=== PATIENT | female | born 1975 | race Two or more races ===

== ENCOUNTER 2025-07-14 10:12 | Inpatient (IN) | payer OTHER ==
[~2025-07-14] VITALS: Ht 167.6 cm; Wt 85.5 kg
--- NOTE | 2025-07-14 10:39 | ED.PDOC ---
HPI Comments 59-year-old female presents here with chest discomfort. She states she woke up around 6:00 a.m. with this chest discomfort. Reports pressure-like pain worse with deep breaths. States it radiates to her jaw. No history of similar type of pain in the past. She states the pain is currently 9/10. Worse when she exerts herself. Or becomes agitated. Chief Complaint: Chest Pain Time Seen by MD: 11:00 Reviewed Notes: Nurses Notes, Medications, Allergies Allergies: Coded Allergies: NO KNOWN ALLERGIES (Unverified , 07/14/25) Information Source: Patient Mode of Arrival: Ambulatory Severity: Moderate Timing: Hours Duration: Since onset, Hours Prehospital treatment: None Location: Chest (R), Chest (L) Radiation: Neck Quality: Pressure, Heavy Onset: At Rest Cardiac Risk Factors: None PE Risk Factors: None History of: None Associated Signs and Symptoms: None Past Medical History PAST MEDICAL HISTORY: Arthritis, HTN Past Medical History (Other): hypothyroid Surgical History: , Hysterectomy Surgical History (Other): gastric sleeve INSIDE SALES DIRECTOR History: No Pertinent INSIDE SALES DIRECTOR History Family History Family History: Reviewed,noncontributory to illness, Unknown Social History Smoker: Non-Smoker Alcohol: Denies ETOH Use Drugs: Denies Drug Use Lives In: Home Constitutional: denies: chills, diaphoresis, fatigue, fever, malaise, sweats, weakness, others EENTM: denies: blurred vision, double vision, ear bleeding, ear discharge, ear drainage, ear pain, ear ringing, eye pain, eye redness, hearing loss, mouth pain, mouth swelling, nasal discharge, nose bleeding, nose congestion, nose pain, photophobia, tearing, throat pain, throat swelling, voice changes, others Respiratory: reports: shortness of breath; denies: cough, hemoptysis, orthopnea, SOB at rest, SOB with excertion, stridor, wheezing, others Cardiovascular: reports: chest pain, others (RADIATING UP THE NECK); denies: dizzy spells, diaphoresis, Dyspnea on exertion, edema, irregular heart beat, left arm pain, lightheadedness, palpitations, PND, syncope Gastrointestinal: denies: abdomen distended, abdominal pain, blood streaked bowels, constipated, diarrhea, dysphagia, difficulty swallowing, hematemesis, melena, nausea, poor appetite, poor fluid intake, rectal bleeding, rectal pain, vomiting, others Genitourinary: denies: abnormal vagina bleeding, burning, dyspareunia, dysuria, flank pain, frequency, hematuria, incontinence, pain, , vagina discha rge, urgency, others Neurological: denies: dizziness, fainting, headache, left sided numbness, left sided weakness, numbness, paresthesia, pre-existing deficit, right sided numbness, right sided weakness, seizure, speech problems, tingling, tremors, weakness, others Musculoskeletal: denies: back pain, gout, joint pain, joint swelling, muscle pain, muscle stiffness, neck pain, others Integumetry: denies: bruises, change in color, change in hair/nails, dryness, laceration, lesions, lumps, rash, wounds, others Allergic/Immunocompromised: denies: Difficulty Healing, Frequent Infections, Hives, Itching, others Hematologic/Lymphatic: denies: anemia, blood clots, easy bleeding, easy bruising, swollen glands, others Endocrine: denies: excessive hunger, excessive sweating, excessive thirst, excessive urination, flushing, intolerance to cold, intolerance to heat, unexplained weight gain, unexplained weight loss, others Psychiatric: denies: anxiety, bipolar disorder, depression, hopeless, panic disorder, schizophrenia, sleepless, suicidal, others All Other Systems: Reviewed and Negative Physical Exam General Appearance: Moderate Distress, Other (Tearful clutching her chest) HEENT: Normal ENT Inspection, Pharynx Normal, TMs Normal Neck: Full Range of Motion, Non-Tender, Normal, Normal Inspection Respiratory: Chest Non-Tender, Lungs Clear, No Accessory Muscle Use, No Respiratory Distress, Normal Breath Sounds Cardiovascular: No Edema, No JVD, No Murmur, No Gallop, Normal Peripheral Pulses, Regular Rate/Rhythm Breast Exam: Deferred Gastrointestinal: No Organomegaly, Non Tender, No Pulsatile Mass, Normal Bowel Sounds, Soft Genitalia: Deferred Pelvic: Deferred Rectal: Deferred Extremities: No calf tenderness, Normal capillary refill, Normal inspection, Normal range of motion, Non-tender, No pedal edema Musculoskeletal : Apperance: Normal Neurologic: Alert, No Motor Deficits, Normal Affect, Normal Mood, No Sensory Deficits Cerebellar Function: Normal Reflexes: Normal Skin: Dry, Normal Color, Warm Lymphatic: No Adenopathy EKG EKG #1: Pulse Rate (adult): 91 [place]: Normal Cardiac Rhythm: NSR Block: None Hypertrophy: None ST: Normal Comments Rate of [address] sinus rhythm no significant ST changes artifact on EKG EKG #2: Comments EKG 2. 11:16 a.m.. Rate of 77 sinus rhythm inverted T-waves in 2 3 and lateral leads V4 V5 V6. Was a procedure done? Was a procedure done?: No CP Differential Dx Differential Diagnosis: Angina, Anxiety / Panic Attack, Pulmonary Embolus, N/A Differential Diagnosis: N/A Differential Diagnosis: Angina, Aortic dissection, Cholelithiasis, Esophageal reflux/spasm, Gastritis, Myocardial Infarction, Pericarditis, Pneumonia, Pneumothorax, Other (CHEST PAIN) X-Ray, Labs, Meds, VS Vital Signs Date Time Temp Pulse Resp B/P (MAP) Pulse Ox O2 Delivery O2 Flow Rate FiO2 07/14/25 11:16 77 07/14/25 11:05 91 07/14/25 10:29 91 07/14/25 10:20 98.2 103 18 173/98 98 98.2 Lab Test 07/14/25 10:57 Range/Units White Blood Count 7.3 4.4-10.8 10^3/uL Red Blood Count 4.67 4.0-5.20 10^6/uL Hemoglobin 14.2 12.2-16.2 g/dL Hematocrit 41.5 36.0-46.0 % Mean Corpuscular Volume 89.0 80.0-100.0 fL Mean Corpuscular Hemoglobin 30.3 28.0-32.0 pg Mean Corpuscular Hemoglobin Concent 34.1 32.0-36.0 g/dL Red Cell Distribution Width 13.3 11.8-14.3 % Platelet Count 291 140-450 10^3/uL Mean Platelet Volume 8.2 6.9-10.8 fL Neutrophils (%) (Auto) 65.2 37.0-80.0 % Lymphocytes (%) (Auto) 23.4 10.0-50.0 % Monocytes (%) (Auto) 7.0 0.0-12.0 % Eosinophils (%) (Auto) 3.9 0.0-7.0 % Basophils (%) (Auto) 0.5 0.0-2.0 % Neutrophils # (Auto) 4.7 1.6-8.6 10 ^3/uL Lymphocytes # (Auto) 1.7 0.4-5.4 10 ^3/uL Monocytes # (Auto) 0.5 0-1.3 10 ^3/uL Eosinophils # (Auto) 0.3 0-0.8 10 ^3/uL Basophils # (Auto) 0 0-0.2 10 ^3/uL Nucleated Red Blood Cells 0.0 % Sodium Level 145 136-145 mmol/L Potassium Level 4.2 3.5-5.1 mmol/L Chloride Level 107 98-107 mmol/L Carbon Dioxide Level 24 20-31 mmol/L Anion Gap 14 5-15 Blood Urea Nitrogen 10 9-23 mg/dL Creatinine 0.81 0.550-1.02 mg/dL Glomerular Filtration Rate Calc 88 >90 mL/min BUN/Creatinine Ratio 12.3 10.0-20.0 Serum Glucose 96 74-106 mg/dL Hemoglobin A1c 5.4 <5.7 % A1C Calcium Level 9.8 8.7-10.4 mg/dL Troponin I High Sensitivity < 3 L </=34 ng/L Triglycerides Level 78 < 150 mg/dL Cholesterol Level 174 < 200 mg/dL LDL Cholesterol 112 H < 100 mg/dL HDL Cholesterol 57 40-59 mg/dL Thyroid Stimulating Hormone (TSH) 4.90 H 0.55-4.78 uIU/mL 49-year-old female presents here with chest discomfort that is states began at 6:00 a.m. when it woke her up from her sleep. Reports radiation to the jaw. Pressure-like. On my examination she is in 9/10 pain tearful and clutching her chest. I am concerned about acute coronary syndrome. Her heart score is 4. Her 1st EKG was unremarkable however she does have some EKG changes with some new inverted T-waves on her 1st to 2nd EKG. Nursing staff has been informed if these changes as patient needs to be monitored closely. I have written for morphine, Zofran, nitroglycerin and aspirin p.o.. I spoke to the patient's daughter and advised her regardless of the results today believe she would benefit from inpatient admission. Daughter and patient are agreeable. At this time a CBC BMP troponin and chest x-ray are pending. CBC BMP troponin are negative. Chest x-ray with no acute abnormality. This time however hospitalist team has been contacted for admission. Time of 1ST Reevaluation: 11:30 Reevaluation 1ST: Unchanged Patient Education/Counseling: Diagnosis, Treatment, Prognosis Family Education/Counseling: No Family Present SEPSIS Sepsis Screen Date sepsis recognized/suspect: Jul 14, 2025 Time Sepsis recognized/suspect: 1023 Recent Procedure: No On Antibiotic Therapy: No Respiratory Rate >20: No Heart Rate >90: Yes Temp<36 C (96.8 F) or >38.3 C: No SBP <90 or MAP <65 mmHG: No New Acute Mental Status Change: No Is the patient on CPAP, BIPAP,: No Physician Orders Electrocardigram (07/14/25 11:19) Electrocardigram (07/14/25 13:19) Troponin-I Hs (07/14/25 13:19) Chest Two Views Routine (07/14/25 10:56) Vital Signs Date Time Temp Pulse Resp B/P (MAP) Pulse Ox O2 Delivery O2 Flow Rate FiO2 07/14/25 11:16 77 07/14/25 11:05 91 07/14/25 10:29 91 07/14/25 10:20 98.2 103 18 173/98 98 98.2 Laboratory Tests Test 07/14/25 10:57 White Blood Count 7.3 10^3/uL (4.4-10.8) Departure 1 Departure Time of Disposition: 11:54 Impression: Primary Impression: Chest pain Qualified Codes: R07.9 - Chest pain, unspecified Disposition: ADMITTED INPATIENT Condition: Fair Critical Care Note Critical Care Time?: Yes (35 min-critical care time only) Critical care comment: Concern for immediate cardiac deterioration. Speaking to nursing staff speaking to patient. Multiple re-evaluations of the patient Stability Stability form required: No Heart Score Heart Score: Heart Score Response (Comments) Value History Moderate Suspicious 1 EKG Repolarization Disturb 1 Age 45-64 1 Risk Factors 1 or 2 risk factors 1 Troponin Normal limit 0 Total 4 I personally scribed for MARTI SIMMS MD ([email or web address]) on 07/14/25 at 11:05. Electronically submitted by Juan Carlos Tanner ([email or web address]). I personally scribed for MARTI SIMSM MD ([email or web address]) on 07/14/25 at 11:09. Electronically submitted by Juan Carlos Tanner ([email or web address]). MARTI SIMMS MD Jul 14, 2025 10:39
--- NOTE | 2025-07-14 11:17 | ECG ---
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
[2025-07-14 11:42] LABS: Hematocrit 41.5 % (36.0-46.0); Hemoglobin 14.2 g/dL (12.2-16.2); Mean Corpuscular Hemoglobin 30.3 pg (28.0-32.0); Mean Corpuscular Volume 89.0 fL (80.0-100.0); Nucleated Red Blood Cells % 0.0 %
[2025-07-14 11:51] LABS: Potassium 4.2 mmol/L (3.5-5.1); Sodium 145 mmol/L (136-145)
[2025-07-14 11:52] LABS: Anion Gap 14 (5-15); Calcium 9.8 mg/dL (8.7-10.4); Carbon Dioxide 24 mmol/L (20-31)
[2025-07-14 11:57] LABS: BUN/Creatinine Ratio 12.3 (10.0-20.0); Blood Urea Nitrogen 10 mg/dL (9-23); Glucose 96 mg/dL (74-106)
[2025-07-14 11:58] LABS: Chloride 107 mmol/L (98-107)
[2025-07-14] MEDS ORDERED: MORPHINE SULFATE 4 MG/ML SYR/VIAL IV PRN (12:00)
[2025-07-14] MEDS ORDERED: NITROGLYCERIN 0.4 MG SL TAB SL PRN (12:00)
[2025-07-14] MEDS ORDERED: MORPHINE SULFATE INJ 2 MG/ml SYRG IV PRN (12:00)
[2025-07-14] MEDS ORDERED: ONDANSETRON HCL 4 MG/2 ML VIAL IV PRN (12:00)
--- NOTE | 2025-07-14 12:01 | DVHHP2 ---
History of Present Illness Reason for Visit: Chest pain History of Present Illness Gisela Roberto is a 49-year-old female with , hysterectomy, gastric sleeve, hypertension, hypothyroidism, and arthritis who presents to the ED with chest pain that started this morning at 6. Patient reports that the pain is 8/10 pressure-like and constant. She also reports that it radiates to her neck and that this morning she also had bilateral tingling of fingers. She reports that it woke her up from her sleep. Patient reports that she is compliant with her medications, takes levothyroxine and lisinopril. Patient also reports that she had pain when taking deep breaths. Patient reports that she recently moved here from [place] to [place] as they bought a home out here 6 months ago. Patient states that she her primary care physician is in [place] but has not been able to find when up here yet. She also reports that she had insurance when she was working while she was in [place] but now is no longer working. Her son Barney is at the chair side. Patient denies any recent trauma or injury, recent sick contacts, recent ingestion of spoiled food, recent travels, shortness of breath, fever, chills, lightheadedness, weakness, dizziness, abdominal pain, nausea, vomiting, diarrhea, or urinary symptoms. Cardiovascular: HTN Endocrine: Hypothyroidism Past Medical History Arthritis Past Surgical History: , Hysterectomy, Other (Gastric sleeve) Family History: DM, Other (Mom with diabetes) Smoke: No ALCOHOL: none Drugs: None Lives: with Family Domestic Violence: Neg Review of Systems Cardiovascular: Chest Pain Allergies: Coded Allergies: NO KNOWN ALLERGIES (Unverified , 07/14/25) Exam Vital Signs Vital Signs Date Time Temp Pulse Resp B/P (MAP) Pulse Ox O2 Delivery O2 Flow Rate FiO2 07/14/25 11:05 91 07/14/25 10:20 98.2 18 173/98 98 98.2 General Appearance: Alert, Oriented X3, Cooperative, No acute distress HEENT: Atraumatic, PERRLA, EOMI, Mucous membr. moist/pink Respiratory: Clear to auscultation, Normal air movement Cardiovascular: Regular rate, Normal S1, Normal S2, No murmurs Abdominal: Normal bowel sounds, Soft Extremities: No clubbing, No cyanosis, No edema, Normal pulses, No tenderness/swelling Neuro: Normal speech, Normal tone, Sensation intact Psych/Mental Status: Mental status NL, Mood NL Labs/Xrays Labs Test 07/14/25 10:57 Range/Units White Blood Count 7.3 4.4-10.8 10^3/uL Red Blood Count 4.67 4.0-5.20 10^6/uL Hemoglobin 14.2 12.2-16.2 g/dL Hematocrit 41.5 36.0-46.0 % Mean Corpuscular Volume 89.0 80.0-100.0 fL Mean Corpuscular Hemoglobin 30.3 28.0-32.0 pg Mean Corpuscular Hemoglobin Concent 34.1 32.0-36.0 g/dL Red Cell Distribution Width 13.3 11.8-14.3 % Platelet Count 291 140-450 10^3/uL Mean Platelet Volume 8.2 6.9-10.8 fL Neutrophils (%) (Auto) 65.2 37.0-80.0 % Lymphocytes (%) (Auto) 23.4 10.0-50.0 % Monocytes (%) (Auto) 7.0 0.0-12.0 % Eosinophils (%) (Auto) 3.9 0.0-7.0 % Basophils (%) (Auto) 0.5 0.0-2.0 % Neutrophils # (Auto) 4.7 1.6-8.6 10 ^3/uL Lymphocytes # (Auto) 1.7 0.4-5.4 10 ^3/uL Monocytes # (Auto) 0.5 0-1.3 10 ^3/uL Eosinophils # (Auto) 0.3 0-0.8 10 ^3/uL Basophils # (Auto) 0 0-0.2 10 ^3/uL Nucleated Red Blood Cells 0.0 % Troponin I High Sensitivity < 3 L </=34 ng/L XY CHEST TWO VIEWS ROUTINE CLINICAL HISTORY: Chest pain COMPARISON: None TECHNIQUE: Frontal and lateral view of the chest was obtained FINDINGS: Lines and Tubes: None Lungs: No focal consolidation. Pleura: No effusion. No pneumothorax. Cardiomediastinal contours: Unremarkable Bones: No acute osseous abnormality. IMPRESSION: 1. No acute cardiopulmonary disease. SEPSIS Sepsis Screen Date sepsis recognized/suspect: Jul 14, 2025 Time Sepsis recognized/suspect: 1023 Recent Procedure: No On Antibiotic Therapy: No Respiratory Rate >20: No Heart Rate >90: Yes Temp<36 C (96.8 F) or >38.3 C: No SBP <90 or MAP <65 mmHG: No New Acute Mental Status Change: No Is the patient on CPAP, BIPAP,: No Physician Orders Electrocardigram (07/14/25 11:19) Electrocardigram (07/14/25 13:19) Troponin-I Hs (07/14/25 11:19) Troponin-I Hs (07/14/25 13:19) Basic Metabolic Panel (07/14/25 10:56) Chest Two Views Routine (07/14/25 10:56) Nitroglycerin Sublingual (Ntrostat Subli (07/14/25 12:00) Morphine Sulfate Injection (07/14/25 12:00) Ondansetron Hcl (Zofran) (07/14/25 12:00) Vital Signs Date Time Temp Pulse Resp B/P (MAP) Pulse Ox O2 Delivery O2 Flow Rate FiO2 07/14/25 11:05 91 07/14/25 10:29 91 07/14/25 10:20 98.2 103 18 173/98 98 98.2 Laboratory Tests Test 07/14/25 10:57 White Blood Count 7.3 10^3/uL (4.4-10.8) Assessment/Plan Assessment/Plan Assessment Chest pain rule out ACS History of hypertension History of hypothyroidism History of arthritis History of History of hysterectomy History of gastric sleeve Plan Admit to tele Antiemetics Pain management Aspirin + statin ACS workup Echo ordered UA UDS CT head -complaining of bilateral fingers tingling Diet Home medications reconciled DVT prophylaxis-SCDs PUD prophylaxis-not indicated history of GERD or GI bleed Discussed plan of care with patient and nurse [id number] Preventive counseling healthy eating habits, physical activity, and regular checkups Plan discussed with: Patient Date of Service: Jul 14, 2025 Billing Provider: JUANPABLO ORELLANA Common Visit Codes: [id number] INP/OBS CARE (HIGH) Secondary Visit Codes: [id number] COUNSELING IND JUANPABLO ORELLANA Jul 14, 2025 12:01
--- NOTE | 2025-07-14 12:07 | DVH ---
XY CHEST TWO VIEWS ROUTINE CLINICAL HISTORY: Chest pain COMPARISON: None TECHNIQUE: Frontal and lateral view of the chest was obtained FINDINGS: Lines and Tubes: None Lungs: No focal consolidation. Pleura: No effusion. No pneumothorax. Cardiomediastinal contours: Unremarkable Bones: No acute osseous abnormality. IMPRESSION: 1. No acute cardiopulmonary disease.
[2025-07-14] MEDS: ONDANSETRON HCL 4 MG/2 ML VIAL IV ONE (12:18)
[2025-07-14] MEDS: NITROGLYCERIN 0.4 MG SL TAB SL ONE (12:18)
[2025-07-14] MEDS: MORPHINE SULFATE 4 MG/ML SYR/VIAL IV ONE (12:19)
[2025-07-14 12:22] VITALS: PULSE 72; RESP 18; O2SAT 98
[2025-07-14 13:18] LABS: Triglycerides 78 mg/dL (< 150)
[2025-07-14 13:20] LABS: Cholesterol 174 mg/dL (< 200); HDL Cholesterol 57 mg/dL (40-59)
--- NOTE | 2025-07-14 14:27 | DVH ---
CT HEAD WITHOUT CONTRAST INDICATION: devon tingling of fingers EXAM DATE: 07/14/2025 01:49 PM COMPARISON: None RADIATION DOSE: CTDIvol: 54.23 mGy, DLP: 960.24 mGy*cm PROCEDURE: CT scans of the head were obtained from the vertex to the skull base. Sagittal and coronal reconstructions were provided. All CT scans at this medical facility are performed using dose modulation techniques as appropriate t o a performed exam including the following: Automated exposure control was utilized; adjustment of th e MA and/or KV according to patient size; and use of iterative reconstruction technique. FINDINGS: There is sulcal and ventricular prominence. The brainshows normal morphology and garland-whi te matter differentiation, without intracranial hemorrhage, extra-axial fluid collection, mass effect or acute large vessel infarct. The ventricles are normal in size. The basal cisterns are patent. The skull and visible facial bones are intact. The paranasal sinuses, mastoid air cells and middle ear c avities are well-aerated. The soft tissues of the scalp are unremarkable. IMPRESSION: No acute intracranial abnormality.
[2025-07-14] MEDS: ACETAMINOPHEN 325 MG TAB PO PRN (18:27)
[2025-07-14 18:31] VITALS: BP 139/89; PULSE 63; RESP 16; TEMP 98.2; O2SAT 100; O2SAT 96
--- NOTE | 2025-07-14 18:53 | ECG ---
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
[2025-07-14 20:00] VITALS: PULSE 62; RESP 18; O2SAT 98
[2025-07-14] MEDS ORDERED: LEVO88TA4 PO (20:00)
[2025-07-14] MEDS ORDERED: LISI20TA56 PO (20:02)
[2025-07-14 21:00] VITALS: BP 143/93; PULSE 60; RESP 18; TEMP 97.7; O2SAT 99
[2025-07-14] MEDS: ATORVASTATIN 20 MG TAB PO SCH (21:53)
[2025-07-15] VITALS (8 sets, daily range): BP systolic 96–142; BP diastolic 64–86; PULSE 57–71; RESP 18–20; TEMP 97.7–98.5; O2SAT 96–98
[2025-07-15 07:24] LABS: Hematocrit 40.2 % (36.0-46.0); Hemoglobin 13.6 g/dL (12.2-16.2); Mean Corpuscular Hemoglobin 30.7 pg (28.0-32.0); Mean Corpuscular Volume 90.8 fL (80.0-100.0); Nucleated Red Blood Cells % 0.1 %
[2025-07-15 07:34] LABS: Chloride 103 mmol/L (98-107); Potassium 4.7 mmol/L (3.5-5.1); Sodium 141 mmol/L (136-145)
[2025-07-15 07:35] LABS: Anion Gap 12 (5-15); Calcium 9.3 mg/dL (8.7-10.4); Carbon Dioxide 26 mmol/L (20-31)
[2025-07-15 07:40] LABS: BUN/Creatinine Ratio 14.0 (10.0-20.0); Blood Urea Nitrogen 12 mg/dL (9-23); Glucose 89 mg/dL (74-106)
[2025-07-15 07:41] LABS: Magnesium 2.2 mg/dL (1.6-2.6)
[2025-07-15] MEDS: LISINOPRIL 20 MG TAB PO SCH (09:56)
--- NOTE | 2025-07-15 18:45 | DVHPN2 ---
Subjective Patient is here for chest pain which is heaviness and was lasting hold yesterday. 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 Medications Current Medications Medications Dose Ordered Sig/Alyson Route Start Time Stop Time Status Last Admin Dose Admin Aspirin 81 mg DAILY PO 07/15/25 10:00 07/15/25 09:56 81 MG Atorvastatin Calcium 40 mg HS PO 07/14/25 22:00 07/14/25 21:53 40 MG Morphine Sulfate 2 mg Q30MP PRN IV 07/14/25 12:00 Acetaminophen 650 mg Q6HP PRN PO 07/14/25 12:00 07/15/25 18:32 650 MG Ondansetron HCl 4 mg Q4HP PRN IV 07/14/25 12:00 UNV Nitroglycerin 0.4 mg Q5MINP PRN SL 07/14/25 12:00 Morphine Sulfate 2 mg Q30M PRN IV 07/14/25 12:00 UNV Lisinopril 20 mg DAILY PO 07/15/25 10:00 07/15/25 09:56 20 MG Laboratory Results Laboratory Tests 07/15/25 06:43 Chemistry Test 07/15/25 06:43 Calcium Level 9.3 mg/dL (8.7-10.4) Magnesium Level 2.2 mg/dL (1.6-2.6) Assessment/Plan Assessment/Plan 49-year-old female with a known history of hypertension, hypothyroidism is here for chest pain 1. Chest pain rule out OK 2. Hypertension 3. Hypothyroidism 4. Generalized osteoarthritis -2D echo, cardiology consultation, resume home medications. Plan discussed with: Patient My Orders Orders - SHIRA GARCÍA MD Procedure Category Date Status Time * Cardiology Consult CONS 10/11/25 Transmitted 16:13 Date of Service: Jul 15, 2025 Billing Provider: SHIRA GARCÍA MD Common Visit Codes: [id number] INP/OBS CARE(HIGH) SHIRA GARCÍA MD Jul 15, 2025 18:45
[2025-07-16] VITALS (8 sets, daily range): BP systolic 104–117; BP diastolic 62–80; PULSE 51–72; RESP 17–18; TEMP 97.8–99.2; O2SAT 97–100
--- NOTE | 2025-07-16 01:16 | DVHINCON2 ---
Date of service: Jul 15, 2025 Referring Physician Arvind Reason for Consultation Chest pain History of Present Illness This is a 59-year-old female with a PMH of Arthritis, HTN who presents to the ED with complaints of chest discomfort. Patient states she woke up around 6:00 a.m. with chest discomfort. Reports pressure-like pain worse with deep breaths. States it radiates to her jaw. No history of similar type of pain in the past. She states the pain is currently 9/10. Worse when she exerts herself or becomes agitated. Troponin is negative x3. Chest x-ray shows NAD.Patient was admitted to the hospital. I am asked to consult on this patient. Family History: Patient reports no known family medical history. Allergies: Coded Allergies: NO KNOWN ALLERGIES (Unverified , 07/14/25) Home Meds Reported Medications Lisinopril (Lisinopril) 20 Mg Tab, 0.5 TAB PO DAILY, #30 TAB 5 Refills 07/14/25 Levothyroxine Sodium (Levothyroxine Sodium) 88 Mcg Tab, 1 TAB PO DAILY, #30 TAB 5 Refills 07/14/25 Current Medications Current Medications Medications (Trade) Dose Ordered Sig/Alyson Route PRN Reason Start Time Stop Time Status Last Admin Aspirin 81 mg DAILY PO 07/15/25 10:00 07/15/25 09:56 Atorvastatin Calcium (Lipitor) 40 mg HS PO 07/14/25 22:00 07/15/25 21:06 Lisinopril (Zestril Tablet) 20 mg DAILY PO 07/15/25 10:00 07/15/25 09:56 Review of Systems Constitutional: denies: chills, diaphoresis, fatigue, fever, malaise, sweats, weakness, others EENTM: denies: blurred vision, double vision, ear bleeding, ear discharge, ear drainage, ear pain, ear ringing, eye pain, eye redness, hearing loss, mouth pain, mouth swelling, nasal discharge, nose bleeding, nose congestion, nose pain, photophobia, tearing, throat pain, throat swelling, voice changes, others Respiratory: reports: shortness of breath; denies: cough, hemoptysis, orthopnea, SOB at rest, SOB with excertion, stridor, wheezing, others Cardiovascular: reports: chest pain, others (RADIATING UP THE NECK); denies: dizzy spells, diaphoresis, Dyspnea on exertion, edema, irregular heart beat, left arm pain, lightheadedness, palpitations, PND, syncope Gastrointestinal: denies: abdomen distended, abdominal pain, blood streaked bowels, constipated, diarrhea, dysphagia, difficulty swallowing, hematemesis, melena, nausea, poor appetite, poor fluid intake, rectal bleeding, rectal pain, vomiting, others Genitourinary: denies: abnormal vagina bleeding, burning, dyspareunia, dysuria, flank pain, frequency, hematuria, incontinence, pain, , vagina discharge, urgency, others Neurological: denies: dizziness, fainting, headache, left sided numbness, left sided weakness, numbness, paresthesia, pre-existing deficit, right sided numbness, right sided weakness, seizure, speech problems, tingling, tremors, weakness, others Musculoskeletal: denies: back pain, gout, joint pain, joint swelling, muscle pain, muscle stiffness, neck pain, others Integumetry: denies: bruises, change in color, change in hair/nails, dryness, laceration, lesions, lumps, rash, wounds, others Allergic/Immunocompromised: denies: Difficulty Healing, Frequent Infections, Hives, Itching, others Hematologic/Lymphatic: denies: anemia, blood clots, easy bleeding, easy bruising, swollen glands, others Endocrine: denies: excessive hunger, excessive sweating, excessive thirst, excessive urination, flushing, intolerance to cold, intolerance to heat, unexplained weight gain, unexplained weight loss, others Psychiatric: denies: anxiety, bipolar disorder, depression, hopeless, panic disorder, schizophrenia, sleepless, suicidal, others All Other Systems: Reviewed and Negative Vital Signs Vital Signs Date Time Temp Pulse Resp B/P (MAP) Pulse Ox O2 Delivery O2 Flow Rate FiO2 07/15/25 19:32 97.6 07/15/25 16:44 65 20 96/64 (75) 96 07/15/25 08:00 Room Air* 0 21 Physical Exam GENERAL: Alert and oriented x 3. No acute distress. EYES: PERRL, EOMI. Anicteric. HENT: Moist mucous membranes. LUNGS: Clear to auscultation bilaterally. CARDIOVASCULAR: Regular rate and rhythm. ABDOMEN: Soft, nontender and nondistended. EXTREMITIES: No edema. NEUROLOGIC: No focal neurological deficits. SKIN: Warm, dry. Labs/Diagnostic Data Labs Test 07/15/25 06:43 07/14/25 13:48 07/14/25 10:57 Range/Units White Blood Count 5.1 # 4.4-10.8 10^3/uL Red Blood Count 4.43 4.0-5.20 10^6/uL Hemoglobin 13.6 12.2-16.2 g/dL Hematocrit 40.2 36.0-46.0 % Mean Corpuscular Volume 90.8 80.0-100.0 fL Mean Corpuscular Hemoglobin 30.7 28.0-32.0 pg Mean Corpuscular Hemoglobin Concent 33.8 32.0-36.0 g/dL Red Cell Distribution Width 13.5 11.8-14.3 % Platelet Count 262 140-450 10^3/uL Mean Platelet Volume 7.9 6.9-10.8 fL Neutrophils (%) (Auto) 51.7 37.0-80.0 % Lymphocytes (%) (Auto) 30.0 10.0-50.0 % Monocytes (%) (Auto) 9.2 0.0-12.0 % Eosinophils (%) (Auto) 7.8 H 0.0-7.0 % Basophils (%) (Auto) 1.3 0.0-2.0 % Neutrophils # (Auto) 2.6 1.6-8.6 10 ^3/uL Lymphocytes # (Auto) 1.5 0.4-5.4 10 ^3/uL Monocytes # (Auto) 0.5 0-1.3 10 ^3/uL Eosinophils # (Auto) 0.4 0-0.8 10 ^3/uL Basophils # (Auto) 0.1 0-0.2 10 ^3/uL Nucleated Red Blood Cells 0.1 % Sodium Level 141 136-145 mmol/L Potassium Level 4.7 3.5-5.1 mmol/L Chloride Level 103 98-107 mmol/L Carbon Dioxide Level 26 20-31 mmol/L Anion Gap 12 5-15 Blood Urea Nitrogen 12 9-23 mg/dL Creatinine 0.86 0.550-1.02 mg/dL Glomerular Filtration Rate Calc 82 >90 mL/min BUN/Creatinine Ratio 14.0 10.0-20.0 Serum Glucose 89 74-106 mg/dL Calcium Level 9.3 8.7-10.4 mg/dL Magnesium Level 2.2 1.6-2.6 mg/dL Troponin I High Sensitivity < 3 L </=34 ng/L Free Thyroxine (T4) Calculated 0.88 L 0.89-1.76 ng/dL Hemoglobin A1c 5.4 <5.7 % A1C Triglycerides Level 78 < 150 mg/dL Cholesterol Level 174 < 200 mg/dL LDL Cholesterol 112 H < 100 mg/dL HDL Cholesterol 57 40-59 mg/dL Thyroid Stimulating Hormone (TSH) 4.90 H 0.55-4.78 uIU/mL Assessment Chest pain. Hypertension. Hypothyroidism . Generalized osteoarthritis. Plan/Recommendation I agree with your ongoing assessment and care of plan. Echocardiogram. Aspirin, Lipitor. Lisinopril. Morphine and Tylenol for pain management. Nitro SL. Additional plan as per the hospital course. A total of 45 minutes was spent reviewing the patient record, examining the patient, making a diagnostic and therapeutic plan, discussing this plan with medical personnel, following up on diagnostic studies and following the patient for clinical stability excluding any and all procedures. At least 50% of this time was spent in direct, [id number] contact. Plan discussed with: Patient THERESA MASSEY MD Jul 15, 2025 21:27
--- NOTE | 2025-07-16 18:08 | DVHPN2 ---
Subjective Patient is here for chest pain which is heaviness and was lasting hold yesterday. 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 Medications Current Medications Medications Dose Ordered Sig/Alyson Route Start Time Stop Time Status Last Admin Dose Admin Aspirin 81 mg DAILY PO 07/15/25 10:00 07/16/25 09:16 81 MG Atorvastatin Calcium 40 mg HS PO 07/14/25 22:00 07/15/25 21:06 40 MG Morphine Sulfate 2 mg Q30MP PRN IV 07/14/25 12:00 Acetaminophen 650 mg Q6HP PRN PO 07/14/25 12:00 07/16/25 09:16 650 MG Ondansetron HCl 4 mg Q4HP PRN IV 07/14/25 12:00 UNV Nitroglycerin 0.4 mg Q5MINP PRN SL 07/14/25 12:00 Morphine Sulfate 2 mg Q30M PRN IV 07/14/25 12:00 UNV Lisinopril 20 mg DAILY PO 07/15/25 10:00 07/16/25 09:16 20 MG Laboratory Results Laboratory Tests 07/15/25 06:43 Assessment/Plan Assessment/Plan 49-year-old female with a known history of hypertension, hypothyroidism is here for chest pain 1. Chest pain rule out [place] 2. Hypertension 3. Hypothyroidism 4. Generalized osteoarthritis -2D echo, cardiology consultation, resume home medications. Plan discussed with: Patient Date of Service: Jul 16, 2025 Billing Provider: SHIRA GARCÍA MD Common Visit Codes: [id number] INP/OBS CARE(HIGH) SHIRA GARCÍA MD Jul 16, 2025 18:08
--- NOTE | 2025-07-16 19:41 | DVHSR ---
APPROVED REPORT EXAM: Two-dimensional and M-mode echocardiogram with Doppler and color Doppler. Blood Pressure: 142/86 mmHg INDICATION Chest Pain RISK FACTORS Height: 5'6, Weight: 185 DIMENSIONS LVDd3.9 (3.8-5.7cm)LA (2D)3.4 (1.9-4.0cm)Aortic Root2.8 (2.0-3.7cm) LVDs2.7 (2.5-4.0cm)LA (MM) (1.9-4.0cm)Aortic Cusp Exc1.4 (1.5-2.0cm) EF (%) 55.0 (55-70%)Rt. Atrium4.1 (1.9-4.0cm)Asc. Aorta cm IVSd0.7 (0.7-1.1cm)RV (D)4.2 (1.8-2.4cm) PWd0.7 (0.7-1.1cm) Mitral Valve MitralMitral Stenosis E wave0.75m/sMV Mean GR.mmHg A wave0.69m/sMV Peak GR.mmHg E/A ratio1.12D MVAcm2 DECEL [id number] 1/2 Timems Aortic Valve Aortic ValveAortic Stenosis V10.96m/Nic Mean GR.5mmHg V21.37m/Nic Peak GR.7mmHg LVOT Diameter1.9 (1.8-2.4cm)Doppler AVA1.99cm2 Tricuspid Valve TR Velocity2.31m/s [id number] Conclusion LV EF IS 65% NORMAL VALVES NORMAL RV FUNCTION AND SIZE NO EFFUSION
--- NOTE | 2025-07-16 19:59 | DVHPN2 ---
Progress Note - Dictate Date Seen: Jul 16, 2025 Medical Necessity Reason Pt with a Central, PICC or Fol: No Subjective Patient was seen and evaluated in follow up. No overnight events. Patient is complaining of chest heaviness. Telemetry reviewed. vital signs Vital Sign Date Time Temp Pulse Resp B/P (MAP) Pulse Ox O2 Delivery O2 Flow Rate FiO2 07/16/25 09:16 116/72 07/16/25 09:03 98.3 62 18 97 98.3 07/16/25 08:00 Room Air* 0 21 Total Intake and Output 07/15/25 07/15/25 07/16/25 15:00 23:00 07:00 Intake Total 1300 ml 800 ml Balance 1300 ml 800 ml medications Current Medications Medications Dose Ordered Sig/Alyson Route Start Time Stop Time Status Last Admin Dose Admin Aspirin 81 mg DAILY PO 07/15/25 10:00 07/16/25 09:16 81 MG Atorvastatin Calcium 40 mg HS PO 07/14/25 22:00 07/15/25 21:06 40 MG Morphine Sulfate 2 mg Q30MP PRN IV 07/14/25 12:00 Acetaminophen 650 mg Q6HP PRN PO 07/14/25 12:00 07/16/25 09:16 650 MG Ondansetron HCl 4 mg Q4HP PRN IV 07/14/25 12:00 UNV Nitroglycerin 0.4 mg Q5MINP PRN SL 07/14/25 12:00 Morphine Sulfate 2 mg Q30M PRN IV 07/14/25 12:00 UNV Lisinopril 20 mg DAILY PO 07/15/25 10:00 07/16/25 09:16 20 MG objective GENERAL: Alert and oriented x 3. No acute distress. EYES: PERRL, EOMI. Anicteric. HENT: Moist mucous membranes. LUNGS: Clear to auscultation bilaterally. CARDIOVASCULAR: Regular rate and rhythm. ABDOMEN: Soft, nontender and nondistended. EXTREMITIES: No edema. NEUROLOGIC: No focal neurological deficits. SKIN: Warm, dry. laboratory and microbiology Laboratory Tests 07/15/25 06:43 Test 07/15/25 06:43 Range/Units Serum Glucose 89 74-106 mg/dL Problem List Chest pain. Hypertension. Hypothyroidism . Generalized osteoarthritis. Assessment/Plan Continued all current supportive medical care. Echocardiogram. Aspirin, Lipitor. Lisinopril. Morphine and Tylenol for pain management. Nitro SL. Additional plan as per the hospital course. Plan discussed with: Patient THERESA MASSYE MD Jul 16, 2025 14:19
[2025-07-17] VITALS (8 sets, daily range): BP systolic 114–136; BP diastolic 62–96; PULSE 54–89; RESP 14–20; TEMP 36.9; O2SAT 98–100
--- NOTE | 2025-07-17 16:41 | DVHDS2 ---
Discharge Summary Date of Admission Jul 14, 2025 at 11:53 Date of Discharge: Jul 17, 2025 Labs/Diagnostic Data: Laboratory Results Test 07/15/25 06:43 07/14/25 13:48 07/14/25 10:57 White Blood Count 5.1 10^3/uL (4.4-10.8) Red Blood Count 4.43 10^6/uL (4.0-5.20) Hemoglobin 13.6 g/dL (12.2-16.2) Hematocrit 40.2 % (36.0-46.0) Mean Corpuscular Volume 90.8 fL (80.0-100.0) Mean Corpuscular Hemoglobin 30.7 pg (28.0-32.0) Mean Corpuscular Hemoglobin Concent 33.8 g/dL (32.0-36.0) Red Cell Distribution Width 13.5 % (11.8-14.3) Platelet Count 262 10^3/uL (140-450) Mean Platelet Volume 7.9 fL (6.9-10.8) Neutrophils (%) (Auto) 51.7 % (37.0-80.0) Lymphocytes (%) (Auto) 30.0 % (10.0-50.0) Monocytes (%) (Auto) 9.2 % (0.0-12.0) Eosinophils (%) (Auto) 7.8 % (0.0-7.0) Basophils (%) (Auto) 1.3 % (0.0-2.0) Neutrophils # (Auto) 2.6 10 ^3/uL (1.6-8.6) Lymphocytes # (Auto) 1.5 10 ^3/uL (0.4-5.4) Monocytes # (Auto) 0.5 10 ^3/uL (0-1.3) Eosinophils # (Auto) 0.4 10 ^3/uL (0-0.8) Basophils # (Auto) 0.1 10 ^3/uL (0-0.2) Nucleated Red Blood Cells 0.1 % Sodium Level 141 mmol/L (136-145) Potassium Level 4.7 mmol/L (3.5-5.1) Chloride Level 103 mmol/L (98-107) Carbon Dioxide Level 26 mmol/L (20-31) Anion Gap 12 (5-15) Blood Urea Nitrogen 12 mg/dL (9-23) Creatinine 0.86 mg/dL (0.550-1.02) Glomerular Filtration Rate Calc 82 mL/min (>90) BUN/Creatinine Ratio 14.0 (10.0-20.0) Serum Glucose 89 mg/dL (74-106) Calcium Level 9.3 mg/dL (8.7-10.4) Magnesium Level 2.2 mg/dL (1.6-2.6) Troponin I High Sensitivity < 3 ng/L (</=34) Free Thyroxine (T4) Calculated 0.88 ng/dL (0.89-1.76) Hemoglobin A1c 5.4 % A1C (<5.7) Triglycerides Level 78 mg/dL (< 150) Cholesterol Level 174 mg/dL (< 200) LDL Cholesterol 112 mg/dL (< 100) HDL Cholesterol 57 mg/dL (40-59) Thyroid Stimulating Hormone (TSH) 4.90 uIU/mL (0.55-4.78) Other Laboratory Tests 07/15/25 06:43 Brief Hx & Hospital Course: 49-year-old female with a known history of hypertension, hypothyroidism is here for chest pain . Patient was ruled out for acute SD. Patient was seen by Cardiology echo was unremarkable troponins were normal. Patient was still complaining of some shortness of breaths and chest pain eventually D-dimer is were checked which was mildly high. Patient underwent CT angio to rule out pulmonary embolism, there is no evidence of pulmonary embolism but incidental finding of heterogeneous mass right kidney which is 4.7 cm highly suspicious for malignancy. Urology evaluated the patient outpatient follow up with them and recommended robotic nephrectomy as an outpatient. This was explained to the patient in detail who understand verbalized understanding and agreeable to plan. Condition at Discharge: Stable Final Diagnosis/Problems List Chest Pain likely anxiety, ruled out acute SD hypothyriodism Hypertension Discharge Disposition: Home SNF Discharge Will this Physician continue t: No Discharge Instruct/Medications Diet: Cardiac 2g Na,low cholest Activity: No Restrictions, As Tolerated Follow Up/Referral: Follow up with the PCP in 1-2 weeks Please follow up with the Dr. Ambrocio Morel in one week Medications: Resume home medications. Continued Medications: Levothyroxine Sodium (Levothyroxine Sodium) 88 Mcg Tab 1 TAB PO DAILY, #30 TAB 5 Refills Lisinopril (Lisinopril) 20 Mg Tab 0.5 TAB PO DAILY, #30 TAB 5 Refills Scheduled Levothyroxine Sodium (Levothyroxine Sodium), 1 TAB PO DAILY, (Reported) Lisinopril (Lisinopril), 0.5 TAB PO DAILY, (Reported) Discharge Statement: "Patient was advised to return to the ER or call 911 if any headaches, dizziness, shortness of breath, chest pain, abdominal pain, bleeding, fevers, or worsening of medical condition. Patient was counseled about treatment plan, medications, possible side effects, patientverbalized understanding. All questions were answered to the best of my ability. This discharge took greater then 30 minutes in planning, reviewing documentation, counseling the patient, and discussing with other team members." ASSESSMENT ASSESSMENT Assessment Chest Pain likely anxiety, ruled out acute SD hypothyriodism Hypertension Date of Service: Jul 18, 2025 Billing Provider: SHIRA GARCÍA MD Common Visit Codes: [id number] DISCH DAY >30min SHIRA GARCÍA MD Jul 17, 2025 16:41
[2025-07-17] MEDS: IOHEXOL 350 MG/ML 100ML IJ ONE (21:46)
--- NOTE | 2025-07-17 23:12 | DVHPN2 ---
Progress Note - Dictate Date Seen: Jul 17, 2025 Medical Necessity Reason Pt with a Central, PICC or Fol: No Subjective Patient was seen and evaluated in follow up. Patient resting in bed. Chest pain improving. Echocardiogram shows LV EF of 65%. D-dimer .58. Telemetry reviewed. vital signs Vital Sign Date Time Temp Pulse Resp B/P (MAP) Pulse Ox O2 Delivery O2 Flow Rate FiO2 07/17/25 20:36 98.1 69 14 114/87 (96) 98 98.1 07/17/25 20:00 Room Air* 0 21 Total Intake and Output 07/16/25 07/16/25 07/17/25 15:00 23:00 07:00 Intake Total 940 ml 650 ml Output Total 500 ml Balance 940 ml 150 ml medications Current Medications Medications Dose Ordered Sig/Alyson Route Start Time Stop Time Status Last Admin Dose Admin Aspirin 81 mg DAILY PO 07/15/25 10:00 07/17/25 09:20 81 MG Atorvastatin Calcium 40 mg HS PO 07/14/25 22:00 07/17/25 21:00 40 MG Morphine Sulfate 2 mg Q30MP PRN IV 07/14/25 12:00 Acetaminophen 650 mg Q6HP PRN PO 07/14/25 12:00 07/16/25 09:16 650 MG Ondansetron HCl 4 mg Q4HP PRN IV 07/14/25 12:00 UNV Nitroglycerin 0.4 mg Q5MINP PRN SL 07/14/25 12:00 Morphine Sulfate 2 mg Q30M PRN IV 07/14/25 12:00 UNV Lisinopril 20 mg DAILY PO 07/15/25 10:00 07/17/25 09:20 20 MG objective GENERAL: Alert and oriented x 3. No acute distress. EYES: PERRL, EOMI. Anicteric. HENT: Moist mucous membranes. LUNGS: Clear to auscultation bilaterally. CARDIOVASCULAR: Regular rate and rhythm. ABDOMEN: Soft, nontender and nondistended. EXTREMITIES: No edema. NEUROLOGIC: No focal neurological deficits. SKIN: Warm, dry. laboratory and microbiology Laboratory Tests 07/15/25 06:43 Test 07/15/25 06:43 Range/Units Serum Glucose 89 74-106 mg/dL Problem List Chest pain. Hypertension. Hypothyroidism . Generalized osteoarthritis. Assessment/Plan Continued all current supportive medical care. Aspirin, Lipitor. Lisinopril. Morphine and Tylenol for pain management. Nitro SL. Additional plan as per the hospital course. Plan discussed with: Patient THERESA MASSEY MD Jul 17, 2025 23:12
[2025-07-18 01:03] VITALS: BP 133/82; PULSE 71; RESP 16; TEMP 98.2; O2SAT 96
[2025-07-18 05:00] VITALS: BP 117/78; PULSE 61; RESP 16; TEMP 98; O2SAT 98
--- NOTE | 2025-07-18 06:03 | DVH ---
CTA Chest with intravenous contrast INDICATION: Per PE protocol COMPARISON: Chest radiograph dated 07/14/2025. TECHNIQUE: Multidetector spiral CTA of the chest was performed of the chest with 100 cc of omnipaque 350 intravenous contrast. PULMONARY ANGIOGRAPHY PROTOCOL was utilized using a bolus-tracking techniqu e centered on the main pulmonary artery. Coronal and sagittal multiplanar and MIP reformats were perf ormed. Radiation Dose : 1. Chest: CTDI volume is height mGy. Dose-length product is mGy*cm The dose indicators for CT are the volume Computed Tomography (CT) Dose Index (CTDIvol) and the Dose Length Product (DLP), and are measured in units of mGy and mGy-cm, respectively. These indicators are not patient dose, but values generated from the CT scanner acquisition factors. The report includes radiation exposure data for exposures received during this examination. FINDINGS: Pulmonary artery: No central, lobar or proximal segmental pulmonary embolus. Lower neck: Multinodular thyroid. Lungs: No evidence of focal pulmonary consolidation. Mild atelectasis in the right middle lobe. Central airways: Patent. Pleura: No pneumothorax. No pleural effusions. Heart/Vascular Structures: The heart is normal in size. No pericardial effusion. Thoracic aorta is no rmal in caliber. No aneurysm or dissection. Lymph Nodes: No mediastinal or hilar lymphadenopathy. Esophagus:Grossly unremarkable. Musculoskeletal: Unremarkable. Body wall: Unremarkable. Upper abdomen: There is a heterogeneously enhancing right renal mass measuring 4.7 cm. Mild right hyd ronephrosis. IMPRESSION: 1. No evidence of pulmonary embolism. 2. No evidence of acute intrathoracic abnormalities. 3. Heterogeneously enhancing right renal mass measuring 4.7 cm concerning for malignancy. Recommend further evaluation with CT or MRI renal mass protocol. Mild right hydronephrosis.
[2025-07-18 08:00] VITALS: PULSE 72; RESP 18; O2SAT 100
[2025-07-18 08:30] VITALS: BP 107/73; PULSE 72; RESP 18; TEMP 98.7; O2SAT 97
--- NOTE | 2025-07-18 10:39 | DVHINCON2 ---
Date of service: Jul 18, 2025 Referring Physician Hospitalist Reason for Consultation Incidentally found renal mass History of Present Illness Patient is admitted for chest pain and was undergoing CT angiogram with incidental finding of 4.7 cm right renal mass that appears to be enhancing. PATIENT: LU LESTER ACCT: [id number] UNIT: [id number] : 1975 LOC: [facility] AGE / SEX: 49 / F ADM STATUS: ADM IN SERVICE [id number] ORDERING PHYSICIAN: SHIRA GARCÍA MD PROCEDURE(s): CTACH - CT ANGIO CHEST CONTRAST REASON: Per PE protocol ORDER NUMBER(s): [id number], ACCESSION NUMBER(s): [id number] CTA Chest with intravenous contrast INDICATION: Per PE protocol COMPARISON: Chest radiograph dated 07/14/2025. TECHNIQUE: Multidetector spiral CTA of the chest was performed of the chest with 100 cc of omnipaque 350 intravenous contrast. PULMONARY ANGIOGRAPHY PROTOCOL was utilized using a bolus-tracking technique centered on the main pulmonary artery. Coronal and sagittal multiplanar and MIP reformats were performed. Radiation Dose : 1. Chest: CTDI volume is height mGy. Dose-length product is mGy*cm The dose indicators for CT are the volume Computed Tomography (CT) Dose Index (CTDIvol) and the Dose Length Product (DLP), and are measured in units of mGy an d mGy-cm, respectively. These indicators are not patient dose, but values generated from the CT scanner acquisition factors. The report includes radiation exposure data for exposures received during this examination. FINDINGS: Pulmonary artery: No central, lobar or proximal segmental pulmonary embolus. Lower neck: Multinodular thyroid. Lungs: No evidence of focal pulmonary consolidation. Mild atelectasis in the right middle lobe. Central airways: Patent. Pleura: No pneumothorax. No pleural effusions. Heart/Vascular Structures: The heart is normal in size. No pericardial effusion. Thoracic aorta is normal in caliber. No aneurysm or dissection. Lymph Nodes: No mediastinal or hilar lymphadenopathy. Esophagus:Grossly unremarkable. Musculoskeletal: Unremarkable. Body wall: Unremarkable. Upper abdomen: There is a heterogeneously enhancing right renal mass measuring 4.7 cm. Mild right hydronephrosis. IMPRESSION: 1. No evidence of pulmonary embolism. 2. No evidence of acute intrathoracic abnormalities. 3. Heterogeneously enhancing right renal mass measuring 4.7 cm concerning for malignancy. Recommend further evaluation with CT or MRI renal mass protocol. Mild right hydronephrosis. ATED BY: ANU DIAZ MD DICTATED DATE/TIME: 07/18/25599 SIGNED BY: ANU DIAZ MD SIGNED DATE/TIME: 07/18/25599 CC: Past Medical History Cardiovascular: HTN Endocrine: Hypothyroidism Past Medical History Arthritis Past Surgical History , Hysterectomy, Other (Gastric sleeve) Family History: Patient reports no known family medical history. Allergies: Coded Allergies: NO KNOWN ALLERGIES (Unverified , 07/14/25) Home Meds Reported Medications Lisinopril (Lisinopril) 20 Mg Tab, 0.5 TAB PO DAILY, #30 TAB 5 Refills 07/14/25 Levothyroxine Sodium (Levothyroxine Sodium) 88 Mcg Tab, 1 TAB PO DAILY, #30 TAB 5 Refills 07/14/25 Review of Systems Cardiovascular: Chest Pain Allergies: Coded Allergies: NO KNOWN ALLERGIES (Unverified , 07/14/25) Vital Signs Vital Signs Date Time Temp Pulse Resp B/P (MAP) Pulse Ox O2 Delivery O2 Flow Rate FiO2 07/18/25 09:34 136/86 07/18/25 08:30 98.7 72 18 97 98.7 07/18/25 08:00 Room Air* 0 21 Physical Exam Vital Signs Date Time Temp Pulse Resp B/P (MAP) Pulse Ox O2 Delivery O2 Flow Rate FiO2 07/14/25 11:05 91 07/14/25 10:20 98.2 18 173/98 98 98.2 General Appearance: Alert, Oriented X3, Cooperative, No acute distress HEENT: Atraumatic, PERRLA, EOMI, Mucous membr. moist/pink Respiratory: Clear to auscultation, Normal air movement Cardiovascular: Regular rate, Normal S1, Normal S2, No murmurs Abdominal: Normal bowel sounds, Soft Extremities: No clubbing, No cyanosis, No edema, Normal pulses, No tenderness/swelling Neuro: Normal speech, Normal tone, Sensation intact Psych/Mental Status: Mental status NL, Mood NL Labs/Diagnostic Data Labs Test 07/17/25 16:51 10/11/25 06:43 07/14/25 13:48 07/14/25 10:57 Range/Units D-Dimer, Quantitative 0.58 H 0.0-0.49 mg/L FEU White Blood Count 5.1 # 4.4-10.8 10^3/uL Red Blood Count 4.43 4.0-5.20 10^6/uL Hemoglobin 13.6 12.2-16.2 g/dL Hematocrit 40.2 36.0-46.0 % Mean Corpuscular Volume 90.8 80.0-100.0 fL Mean Corpuscular Hemoglobin 30.7 28.0-32.0 pg Mean Corpuscular Hemoglobin Concent 33.8 32.0-36.0 g/dL Red Cell Distribution Width 13.5 11.8-14.3 % Platelet Count 262 140-450 10^3/uL Mean Platelet Volume 7.9 6.9-10.8 fL Neutrophils (%) (Auto) 51.7 37.0-80.0 % Lymphocytes (%) (Auto) 30.0 10.0-50.0 % Monocytes (%) (Auto) 9.2 0.0-12.0 % Eosinophils (%) (Auto) 7.8 H 0.0-7.0 % Basophils (%) (Auto) 1.3 0.0-2.0 % Neutrophils # (Auto) 2.6 1.6-8.6 10 ^3/uL Lymphocytes # (Auto) 1.5 0.4-5.4 10 ^3/uL Monocytes # (Auto) 0.5 0-1.3 10 ^3/uL Eosinophils # (Auto) 0.4 0-0.8 10 ^3/uL Basophils # (Auto) 0.1 0-0.2 10 ^3/uL Nucleated Red Blood Cells 0.1 % Sodium Level 141 136-145 mmol/L Potassium Level 4.7 3.5-5.1 mmol/L Chloride Level 103 98-107 mmol/L Carbon Dioxide Level 26 20-31 mmol/L Anion Gap 12 5-15 Blood Urea Nitrogen 12 9-23 mg/dL Creatinine 0.86 0.550-1.02 mg/dL Glomerular Filtration Rate Calc 82 >90 mL/min BUN/Creatinine Ratio 14.0 10.0-20.0 Serum Glucose 89 74-106 mg/dL Calcium Level 9.3 8.7-10.4 mg/dL Magnesium Level 2.2 1.6-2.6 mg/dL Troponin I High Sensitivity < 3 L </=34 ng/L Free Thyroxine (T4) Calculated 0.88 L 0.89-1.76 ng/dL Hemoglobin A1c 5.4 <5.7 % A1C Triglycerides Level 78 < 150 mg/dL Cholesterol Level 174 < 200 mg/dL LDL Cholesterol 112 H < 100 mg/dL HDL Cholesterol 57 40-59 mg/dL Thyroid Stimulating Hormone (TSH) 4.90 H 0.55-4.78 uIU/mL Assessment Incidental right renal mass, 4.7 cm Plan/Recommendation As per Radiology, MRI renal mass protocol is needed. Patient will need to undergo Robotic right radical nephrectomy at higher level of care Plan discussed with: Patient, Other ELAYNE FLETCHER MD Jul 18, 2025 10:39
[2025-07-18] MEDS: GADOTERATE MEG 10 MMOL/20ml INJ (0.5MMOL/ml) IV ONE (11:50)
[2025-07-18 12:42] VITALS: BP 178/116; PULSE 75; RESP 20; TEMP 98; O2SAT 100
--- NOTE | 2025-07-18 13:07 | DVH ---
CLINICAL HISTORY: Right Renal Mass 4.7 cm concerning for malignancy TECHNIQUE: MRI of the abdomen was performed with and without IV contrast. COMPARISON: None FINDINGS: The spleen, adrenal glands, pancreas, and left kidney are unremarkable. There are numerous gallstones. Is a left hepatic lobe cyst. There is a 5.6 cm T2 heterogeneous hyperintense mass within the right mid kidney with avid enhancemen t, highly concerning for renal malignancy. The abdominal aorta is normal in course and caliber. There is no free intraperitoneal fluid. No enlar ged lymph node is see n. IMPRESSION: 5.6 cm right renal mass, highly concerning for renal cell malignancy. No evidence for metastatic dise ase in the abdomen. Cholelithiasis
[2025-07-18 16:51] VITALS: BP 154/100; PULSE 87; RESP 18; TEMP 97.9; O2SAT 97
--- NOTE | 2025-07-19 02:55 | DVHPN2 ---
Progress Note - Dictate Date Seen: Jul 18, 2025 Medical Necessity Reason Pt with a Central, PICC or Fol: No Subjective Patient was seen and evaluated in follow up. Patient resting in bed. CTA chest showed heterogeneously enhancing right renal mass measuring 4.7 cm concerning for malignancy. Mild right hydronephrosis. Telemetry reviewed. vital signs Vital Sign Date Time Temp Pulse Resp B/P (MAP) Pulse Ox O2 Delivery O2 Flow Rate FiO2 07/18/25 12:42 98.0 75 20 178/116 (136) 100 98.0 07/18/25 08:00 Room Air* 0 21 Total Intake and Output 07/17/25 07/17/25 07/18/25 15:00 23:00 07:00 Intake Total 400 ml 700 ml Balance 400 ml 700 ml medications Current Medications Medications Dose Ordered Sig/Alyson Route Start Time Stop Time Status Last Admin Dose Admin Aspirin 81 mg DAILY PO 07/15/25 10:00 07/18/25 09:34 81 MG Atorvastatin Calcium 40 mg HS PO 07/14/25 22:00 07/17/25 21:00 40 MG Morphine Sulfate 2 mg Q30MP PRN IV 07/14/25 12:00 Acetaminophen 650 mg Q6HP PRN PO 07/14/25 12:00 07/18/25 09:32 650 MG Ondansetron HCl 4 mg Q4HP PRN IV 07/14/25 12:00 UNV Nitroglycerin 0.4 mg Q5MINP PRN SL 07/14/25 12:00 Morphine Sulfate 2 mg Q30M PRN IV 07/14/25 12:00 UNV Lisinopril 20 mg DAILY PO 07/15/25 10:00 07/18/25 09:34 20 MG objective GENERAL: Alert and oriented x 3. No acute distress. EYES: PERRL, EOMI. Anicteric. HENT: Moist mucous membranes. LUNGS: Clear to auscultation bilaterally. CARDIOVASCULAR: Regular rate and rhythm. ABDOMEN: Soft, nontender and nondistended. EXTREMITIES: No edema. NEUROLOGIC: No focal neurological deficits. SKIN: Warm, dry. laboratory and microbiology Laboratory Tests 07/15/25 06:43 Test 07/15/25 06:43 Range/Units Serum Glucose 89 74-106 mg/dL Problem List Chest pain. Hypertension. Hypothyroidism . Generalized osteoarthritis. Assessment/Plan Continued all current supportive medical care. Nitro SL. Aspirin. Lisinopril. Morphine and Tylenol for pain management. Additional plan as per the hospital course. Plan discussed with: Patient THERESA MASSEY MD Jul 18, 2025 15:04
--- NOTE | 2025-07-19 13:16 | ECG ---
[facility] Test Date: 2025-07-14 Test Time: 10:29:04 Pat Name: LU LESTER Department: [facility] Gender: F [employer]: belen : 1975 Requested By: MARTI SIMMS Order Number: [id number] Reading MD: Kaushal Garduno Measurements Intervals [place] Rate: 91 P: 40 NH: 120 QRS: 22 QRSD: 96 T: 91 QT: 306 QTc: 377 Interpretive Statements Sinus rhythm Low voltage, precordial leads Baseline wander in lead(s) II,aVR Electronically Signed On 07-22-2025 18:35:27 PDT by Kaushal Garduno Please click the below link to view image of tracing.
== END 2025-07-18 17:05 | disposition home or self-care (01) | DRG 203 ==
LOC: ER 10:12 → OVERFLOW 11:53 → TELE-WESTW 18:20
PROVIDERS: ADMIT Internal Medicine; ATTEND Internal Medicine
DX: R07.89 Other chest pain (principal); E03.9 Hypothyroidism, unspecified; F41.9 Anxiety disorder, unspecified; I10 Essential (primary) hypertension; K21.9 Gastro-esophageal reflux disease without esophagitis; M15.8 Other polyosteoarthritis; Z98.891 History of uterine scar from previous surgery; Z98.84 Bariatric surgery status; Z90.710 Acquired absence of both cervix and uterus; Z90.5 Acquired absence of kidney; Z83.3 Family history of diabetes mellitus
CPT/HCPCS: 36415; 70450; 71046; 71275; 74183; 80048; 80061; 83036; 83735; 84439; 84443; 84484; 85025; 85379; 93005; 93306; 99291; G0378; J2405